=== PATIENT | female | born 1995 | race Caucasian/White ===

== ENCOUNTER 2020-01-11 14:13 | Emergency (ER) | payer OTHER ==
--- NOTE | 2020-01-11 15:11 | ER Document Report ---
ED Medical Screen (RME) - General Chief Complaint: Nausea Stated Complaint: NAUSEA/ABDOMINAL CRAMPING Time Seen by Provider: 01/11/20 15:07 Mode of Arrival: Ambulatory Information source: Patient Notes: 24-year-old female presented to ED for complaint of pelvic pain worse on the left. She states she is not having any vaginal bleeding. She states her last menstrual period was September 25. [facility] did not [facility] be [facility] in person for . When she called today to tell that she was having pelvic pain states that she needed to come into the ER because they do not know how far along she is. We will get blood urine and transvaginal ultrasound. This is her first . She does not smoke drink or do any drugs. I have greeted and performed a rapid initial assessment of this patient. A comprehensive ED assessment and evaluation of the patient, analysis of test results and completion of medical decision making process will be conducted by an additional ED providers. - Related Data Allergies/Adverse Reactions: No Known Allergies Allergy (Verified 01/11/20 15:07) Physical Exam - Vital signs Vitals: Temp Pulse Resp BP Pulse Ox 99.1 F 82 18 107/67 100 01/11/20 14:38 01/11/20 14:38 01/11/20 14:38 01/11/20 14:38 01/11/20 14:38 Course - Vital Signs Vital signs: Temp Pulse Resp BP Pulse Ox 99.1 F 82 18 107/67 100 01/11/20 14:38 01/11/20 14:38 01/11/20 14:38 01/11/20 14:38 01/11/20 14:38
[2020-01-11 16:04] LABS: ABSOLUTE BASOPHILS # (AUTO) 0.1 10^3/uL (0.0-0.2); ABSOLUTE EOSINOPHILS # (AUTO) 0.2 10^3/uL (0.0-0.6); ABSOLUTE LYMPHOCYTES (AUTO) 2.2 10^3/uL (0.5-4.7); ABSOLUTE MONOCYTES (AUTO) 0.6 10^3/uL (0.1-1.4); ABSOLUTE NEUT (AUTO) 5.3 10^3/uL (1.7-8.2); BASOPHILS % (AUTO) 0.6 % (0-2); EOSINOPHILS % (AUTO) 1.8 % (0-6); HEMOGLOBIN 12.8 g/dL (12.0-15.5); MEAN CORPUSCULAR HEMOGLOBIN 29.2 pg (27.0-33.4); MEAN CORPUSCULAR HGB CONC 35.6 g/dL (32.0-36.0); MEAN CORPUSCULAR VOLUME 82 fl (80-97); MONOCYTES % (AUTO) 6.6 % (3-13); PLATELET COUNT 251 10^3/uL (150-450); RED BLOOD COUNT 4.38 10^6/uL (3.72-5.28); RED CELL DISTRIBUTION WIDTH 13.7 % (11.5-14.0); TOTAL CELLS COUNTED % (AUTO) 100 %; WHITE BLOOD COUNT 8.3 10^3/uL (4.0-10.5)
[2020-01-11 16:13] LABS: APPEARANCE,URINE SLIGHTLY-CLOUDY; BILIRUBIN,URINE NEGATIVE (NEGATIVE); COLOR,URINE YELLOW; GLUCOSE, URINE NEGATIVE (NEGATIVE); KETONES,URINE NEGATIVE (NEGATIVE); LEUKOCYTE ESTERASE,URINE NEGATIVE (NEGATIVE); NITRITE,URINE NEGATIVE (NEGATIVE); PROTEIN,URINE NEGATIVE (NEGATIVE); URINE SPECIFIC GRAVITY 1.018; UROBILINOGEN,URINE NEGATIVE mg/dL (<2.0)
[2020-01-11 16:26] LABS: ALBUMIN 4.8 g/dL (3.5-5.0); ALKALINE PHOSPHATASE 68 U/L (38-126); ANION GAP 12 (5-19); ASPARTATE AMINO TRANSFERASE 24 U/L (14-36); BILIRUBIN,TOTAL 0.5 mg/dL (0.2-1.3); BLOOD UREA NITROGEN 9 mg/dL (7-20); CALCIUM 10.7 mg/dL (8.4-10.2); CARBON DIOXIDE 23 mmol/L (22-30); CHLORIDE 100 mmol/L (98-107); GLUCOSE 87 mg/dL (75-110); POTASSIUM 4.1 mmol/L (3.6-5.0); TOTAL PROTEIN 8.4 g/dL (6.3-8.2)
--- NOTE | 2020-01-11 16:40 | RADIOLOGY REPORT (SQ) ---
EXAM DESCRIPTION: U/S 1TRIMESTER/1GEST W/DOPPLER IMAGES COMPLETED DATE/TIME: 01/11/2020 4:19 pm REASON FOR STUDY: Pain last menstrual cycle September 25 COMPARISON: None. TECHNIQUE: Transabdominal static and realtime grayscale images acquired of the pelvis. Additional se lected spectral and color Doppler images recorded. All images [facility] PACs. [facility]. CLINICAL DATES: LMP 09/26/2019. EGA based on LMP 15 weeks 2 days. DILLAN based on LMP 07/02/2020. LIMITATIONS: None. FINDINGS: FETUS: Single Living intrauterine . ULTRASOUND EGA: 7 weeks 1 days. ULTRASOUND DILLAN: 08/28/2020. CRL: 10.5 mm. FHR: 147 beats per minute. SURVEY: Too early to assess. AMNIOTIC FLUID: Too early to assess. PLACENTA: Too early to assess. SUBCHORIONIC BLEED: No. UTERUS: The uterus measures 9.1 x 5 x 5 cm. There is an intrauterine gestational sac that contains a n embryo and a yolk sac. CERVICAL LENGTH: 2.5 cm. Closed. RIGHT ADNEXA: The right ovary measures 3.4 x 2.9 x 2.6 cm and on Doppler there is intact arterial inf low and venous outflow within the ovarian stroma. There is a round hypoechoic lesion within the righ t ovary that measures 2 x 1.6 x 1.5 cm; this lesion could represent a corpus luteum cyst. LEFT ADNEXA: Unable to visualize the left ovary. There is no adnexal mass. FREE FLUID: None. OTHER: No other findings. IMPRESSION: LIVE INTRAUTERINE . EGA 7 weeks 1 days based on ultrasound (discrepant with EGA based on LMP). 2 X 1.6 X 1.5 CM ROUND HYPOECHOIC LESION WITHIN THE RIGHT OVARY COULD REPRESENT A CORPUS LUTEUM CYST. NONVISUALIZATION OF THE LEFT OVARY. THERE IS NO ADNEXAL MASS. Trimester of : First trimester - 0 to 13 weeks. TECHNICAL DOCUMENTATION: JOB ID: [id number] 2010 [employer]- All Rights Reserved rev Reading location - IP/workstation name: [email or web address]-
--- NOTE | 2020-01-11 21:45 | ER Document Report ---
ED General - General Chief Complaint: Abdominal Pain Stated Complaint: NAUSEA/ABDOMINAL CRAMPING Time Seen by Provider: 01/11/20 15:07 Primary Care Provider: TACHO,GALLO [Primary Care Provider] - Follow up as needed Mode of Arrival: Ambulatory - [facility] Notes: Patient is a 24-year-old G1, P0 who presents with abdominal pain. Patient states that her last menstrual period may have been in September or October as she had some spotting in October. She states for the past 2 weeks she has had abdominal pain especially in the left lower quadrant but occasionally in the right lower quadrant. She normally takes Tylenol and it is resolved. [facility] that she did not need to be seen for the but recommended she go to the ER for the abdominal pain. Patient states she has been drinking plenty of water. She has had some morning sickness. No diarrhea or constipation. She states she has been urinating more often. She denies any dysuria. No vaginal bleeding. No recent illnesses. She does not have an OB yet. - Related Data Allergies/Adverse Reactions: No Known Allergies Allergy (Verified 01/11/20 15:07) Past Medical History - General Information source: Patient - Social History Smoking Status: Never Smoker Family History: Reviewed & Not Pertinent Review of Systems - Review of Systems Notes: CONSTITUTIONAL: No fever, fatigue or weight loss. SKIN: No rash. HENT: No congestion, ear pain, or sore throat. EYES: No recent vision problems or eye pain. ENDOCRINE: No thyroid problems. No polyuria or polydipsia. CARDIOVASCULAR: No chest pain or edema. RESPIRATORY: No cough, shortness of breath, congestion, or wheezing. GASTROINTESTINAL: Positive for abdominal pain, nausea, vomiting GENITOURINARY: No dysuria. Increased urination. MUSCULOSKELETAL: No joint pain or swelling. LYMPHATIC: No swollen glands. NEUROLOGIC: No seizures. No headache, focal weakness or sensory changes. HEMATOLOGIC: No unusual bruising or bleeding. PSYCHIATRIC: No depression or anxiety. Physical Exam - Vital signs Vitals: Temp Pulse Resp BP Pulse Ox 99.1 F 82 18 107/67 100 01/11/20 14:38 01/11/20 14:38 01/11/20 14:38 01/11/20 14:38 01/11/20 14:38 - General General appearance: Appears well Notes: VITAL SIGNS: Within normal limits. GENERAL: No acute distress, non-toxic appearance. HEAD: Normal with no signs of head trauma. EYES: EOMI, conjunctiva normal, no discharge. EARS: Hearing grossly intact. NOSE: Normal. THROAT: Oropharynx is normal. NECK: Normal range of motion, no tenderness, supple, no lymphadenopathy, No adenopathy, no JVD. CHEST: Clear breath sounds bilaterally. No wheezes, rales, or rhonchi. CARDIAC: Regular rate and rhythm. S1 and S2, without murmurs, gallops, or rubs. VASCULAR: No Edema. ABDOMEN: Normal and soft with no tenderness, no masses or pulsatile masses. Nontender to palpation. No tenderness in the left or right lower quadrant. No rebound or rigidity. GENITOURINARY: Normal, No tenderness MUSCULOSKELETAL: Good range of motion of all major joints. Extremities without clubbing, cyanosis or edema. NEUROLOGICAL: Alert and oriented x 3. No focal sensory or strength deficits. Speech normal. Follows commands appropriately. PSYCHIATRIC: Normal Affect, judgement and mood. SKIN: Normal appearance with no rashes or lesions. Course - Re-evaluation Re-evalutation: 01/11/20 21:56 Patient's ultrasound shows a live intrauterine gestation. She does have a likely corpus luteum cyst. The left ovary was not visualized which I told her about. She does not have any tenderness on exam and is alert and oriented and in no acute distress. I recommended that she call OB first thing tomorrow morning as they may need to repeat the ultrasound as well as start her work-up. Patient states she does have increased urination and trace bacteria and WBC on urinalysis so I will treat with Keflex. She has been drinking plenty of fluid. She does not appear dehydrated. Patient is very agreeable with discharge and follow-up outpatient. I did discuss with her about the Zoloft and informed her that she needs to talk to her OB or her PCP about that medication as she is . She was given strict return precautions. 01/12/20 00:36 - Vital Signs Vital signs: Temp Pulse Resp BP Pulse Ox 98.4 F 75 15 112/65 100 01/11/20 21:45 01/11/20 21:45 01/11/20 21:45 01/11/20 21:45 01/11/20 21:45 - Laboratory Result Diagrams: 01/11/20 15:34 01/11/20 15:34 Laboratory results interpreted by me: 01/11/20 01/11/20 01/11/20 15:34 15:34 15:34 Sodium 135.1 L Calcium 10.7 H Total Protein 8.4 H Beta HCG, Quant 737582.00 H Urine HCG, Qual POSITIVE H - Diagnostic Test Radiology reviewed: Image reviewed, Reports reviewed Discharge - Discharge Clinical Impression: First trimester , Corpus luteum cyst of right ovary Abdominal pain Qualifiers: Abdominal location: left lower quadrant Qualified Code(s): R10.32 - Left lower quadrant pain Condition: Stable Disposition: HOME, SELF-CARE Instructions: Abdominal Pain ([facility]), Pelvic Pain in ([facility]), ([facility]) Additional Instructions: You have a live intrauterine gestation at 7 weeks and 1 day. There is a possible right corpus luteum cyst on your ovary. Your urine has some trace bacteria. We will treat with antibiotics. Please follow-up with the MANAGER ASSURANCE provided. Ultrasound was unable to visualize your left ovary today. You may need a repeat ultrasound with the MANAGER ASSURANCE. Please return for any worsening abdominal pain, any vaginal bleeding, vomiting, fevers, any other concerning symptoms. Prescriptions: Cephalexin Monohydrate [Keflex 500 mg Capsule] 500 mg PO BID 5 Days #10 capsule [facility] [[facility] - Follow up as needed
[2020-01-11 22:04] VITALS: BP 112/65
== END 2020-01-11 22:00 | disposition home or self-care (01) ==
LOC: ER 14:13
DX: O34.81 Maternal care for other abnormalities of pelvic organs, first trimester (principal); N83.11 Corpus luteum cyst of right ovary; O26.891 Other specified pregnancy related conditions, first trimester; R10.32 Left lower quadrant pain; R10.31 Right lower quadrant pain; R39.89 Other symptoms and signs involving the genitourinary system; O21.9 Vomiting of pregnancy, unspecified; Z3A.00 Weeks of gestation of pregnancy not specified
CPT/HCPCS: 36415; 76801; 80053; 81001; 81025; 84702; 85025; 86900; 86901; 87086; 93976; 99284